=== PATIENT | male | born 1965 ===

== ENCOUNTER 2020-10-02 09:45 | Outpatient (REF) | payer MEDICARE, MEDICAID, SELFPAY ==
--- NOTE | 2020-10-02 09:54 | ECG_ITS ---
Test Reason : Z79.899 Blood Pressure : / mmHG Vent. Rate : 057 BPM Atrial Rate : 057 BPM P-R Int : 172 ms QRS Dur : 096 ms QT Int : 474 ms P-R-T Axes : 069 -89 072 degrees QTc Int : 461 ms Sinus bradycardia Left anterior fascicular block Abnormal ECG No previous ECGs available Referred By: Sarah Mena Electronically Signed By:MAIK RENEE MD
[2020-10-02 11:04] LABS: MANUAL DIFF FLAG NO
[2020-10-02 11:20] LABS: Basophils Percent Auto 0.5 % (0-2); Eosinophils Absolute Auto 0.1 X10*3/uL (0.0-0.4); Eosinophils Percent Auto 1.9 % (0-4); Hematocrit 44.4 % (42-52); Imm Gran Abs Auto 0.03 X10*3/uL (0.00-0.03); Imm Gran Pct Auto 0.4 % (0.0-0.4); Lymphocytes Absolute Auto 2.1 X10*3/uL (1.2-4.9); Lymphocytes Percent Auto 28.3 % (20-40); Mean Corpuscular HGB Conc 33.8 g/dl (31.0-36.0); Mean Corpuscular Hemoglobin 31.7 pg (27.0-33.0); Mean Corpuscular Volume 93.9 fL (80-98); Mean Platelet Volume 9.6 fL (9.4-12.4); Monocytes Absolute Auto 0.4 X10*3/uL (0.1-1.2); Monocytes Percent Auto 5.4 % (2-11); Neutrophils Absolute Auto 4.8 X10*3/uL (2.0-8.3); Neutrophils Percent Auto 63.5 % (45-73); Platelet Count 201 X10*3/uL (160-400); Red Blood Count 4.73 X10*6/uL (4.60-5.80); White Blood Count 7.6 X10*3/uL (4.8-10.8)
[2020-10-02 12:01] LABS: Thyroid Stimulating Hormone 3.93 uIU/mL (0.32-4.0)
[2020-10-02 12:16] LABS: Alanine Aminotransferase < 6 U/L (0-40); Albumin Level 4.4 g/dL (3.5-5.0); Alkaline Phosphatase 101 U/L (39-117); Anion Gap 14 (12-20); Aspartate Amino Transferase 13 U/L (5-37); Bilirubin Total 0.4 mg/dL (0.0-1.0); Blood Urea Nitrogen 11 mg/dL (9-16); Calcium 8.6 mg/dL (8.4-10.2); Carbon Dioxide 26 mmol/L (22-29); Chloride 105 mmol/L (96-108); Cholesterol 182 mg/dL; Estimated Glomerular Filt Rate > 60; Glucose Fasting 76 mg/dL (60-99); HDL Cholesterol 24 mg/dL; LDL Cholesterol Calculated 104 mg/dl; Potassium 4.5 mmol/L (3.3-5.1); Sodium 140 mmol/L (135-145); Total Protein 7.2 g/dL (6.5-8.0); Triglycerides 274 mg/dL
[2020-10-02 12:23] LABS: Estimated Average Glucose 103 mg/dL; Hemoglobin A1c % 5.2 %
== END 2020-10-02 09:46 | disposition home or self-care (01) ==
LOC: HO.LAB 09:45
PROVIDERS: Visit Provider Psychiatry & Neurology Psychiatry
DX: Z79.899 Other long term (current) drug therapy (principal)
CPT/HCPCS: 36415; 80053; 80061; 83036; 84443; 85025; 93005

== ENCOUNTER 2021-11-14 14:07 | Emergency (ER) | payer MEDICARE, MEDICAID, SELFPAY ==
[2021-11-14 14:14] VITALS: BP 103/69; PULSE 90; RESP 14; TEMP 36.7; O2SAT 95; BMI 29.0
--- NOTE | 2021-11-14 14:16 | PC.NURSE ---
o2 sat originally 88% on ra. pt sat up and taking deep breaths- up to 95% on ra
--- NOTE | 2021-11-14 14:16 | ED.OVERDOSE ---
HPI - Overdose General Chief Complaint: ETOH/Substance Use Stated Complaint: SUBSTANCE ABUSE,BAGS X 3,-LOC,-NARCAN Time Seen by Provider: 11/14/21 14:11 Source: patient and EMS Mode of arrival: EMS Limitations: no limitations History of Present Illness HPI Narrative: This is 56 years old male with history of opiate use disorder presented to the emergency room after an overdose, family member called 911, did not require Narcan, arrived awake and alert. He states that he was on methadone up to 10 days ago and he was discharged from the methadone clinic because his behavior complaint: accidental overdose Onset (ago): hour(s) (1) Intent: wanted to escape and other How Overdose Was Discovered: family/friend present at time and called 911 Context: Accidental Overdose: wanted to get high Related Data Allergies Allergy/AdvReac Type Severity Reaction Status Date / Time No Known Allergies Allergy Unverified 10/02/20 10:59 [No Known Allergies*] Review of Systems Constitutional: Constitutional: Reports no additional constitutional complaints Eyes: Eyes: Reports no additional eye complaints Cardiovascular: Cardiovascular: Denies chest pain and Denies chest pain at rest Respiratory: Respiratory: Reports no additional respiratory complaints [facility] Past Medical History [facility] Narrative: opioid use disorder Social History Social History Patient Tobacco Use Status: Current everyday Tobacco user Smoked in Last 30 Days: Yes Use of substances other than those prescribed or required for medical reasons: Yes Substance Use Type: Heroin and Marijuana Substance Use Frequency: Daily Last Used Substance: Just Prior to Admission Any prior treatment program specific to substance use: Yes Advance Directives: No Advance Directives Information Provided: No Physical Exam Vital Signs: Vital Signs: Last Vital Signs Temp 98.1 F 11/14/21 15:52 Pulse 93 11/14/21 15:52 Resp 18 11/14/21 15:52 BP 112/76 11/14/21 15:52 Pulse Ox 95 11/14/21 15:52 O2 Del Method 11/14/21 15:52 O2 Flow Rate 3 11/14/21 15:52 BMI result Body Mass Index 29.0 Const: General: cooperative Nutritional Appearance: average body habitus Orientation/consciousness: patient oriented x3 Limitations: no limitations HEENT: Head: Yes normal to inspection General nose exam: Normal external nose present Face and sinus: Yes normal facial exam Mouth: Normal oral and palatal mucosa present Neck: Neck: Yes normal visual inspection Chest: Chest palpation & inspection: normal inspection of the chest Resp: Effort & Inspection: normal respiratory effort Auscultation: clear to auscultation bilaterally Cardio: Jugular venous distension: no JVD Palpation: normal PMI Rate: regular rate Rhythm: regular rhythm GI: Inspection: Yes normal to inspection Palpation (GI): Soft to palpation, not firm, nontender and no guarding Skin: General skin exam: no rashes or lesions noted Lesions: no lesions Rashes: no rashes Neuro: General: patient oriented x3 Course Reevaluation(s) Reevaluation #1: signed out to Dr Eddie bai pending Discharge Plan Discharge Clinical Impression: Opioid overdose Patient Disposition: Still a Patient
[2021-11-14 15:52] VITALS: BP 112/76; PULSE 93; RESP 18; TEMP 36.7; O2SAT 95
[2021-11-14 16:53] LABS: Appearance Urine HAZY; Color Urine DK YELLOW; Glucose Urine UA NEG (NEG); Leukocyte Esterase Urine NEG (NEG); Nitrite Urine NEG (NEG); PH 5.5 (5.0-8.0); Specific Gravity - Urine >= 1.030 (1.005-1.025); Urine Blood NEG (NEG); Urine Ketones 5 MG/DL (NEG); Urine Protein 2+ MG/DL (NEG-TRACE)
[2021-11-14 16:58] LABS: IDNOW Serial# 16C4AD1C
[2021-11-14 16:59] LABS: COVID-19 Test Negative (Negative)
[2021-11-14 17:00] LABS: WBC Urine 0-2 /HPF (0-4)
[2021-11-14 17:01] LABS: Mucus Urine 4+ /LPF; Squamous Epithelial Cell Urine TRACE /LPF
--- NOTE | 2021-11-14 17:39 | MHC.RECOVSUP ---
? Reason for consult Recovery Support o Current location: ED11 o Identified substance use concern: Heroin - Support ? Intervention: o Community resources provided o Harm reduction discussion ? Plan: o Patient awaiting crisis evaluation o Patient to follow up with [facility] after discharge ? Additional information: Patient is seeking help going to a dual Detox.. Patient stated that he wants to go to a detox but he is having issues with his Meds.. I spoke with the care team about Patient.
[2021-11-14 19:21] LABS: MANUAL DIFF FLAG NO
[2021-11-14 19:22] LABS: Basophils Percent Auto 0.2 % (0-2); Eosinophils Percent Auto 0.1 % (0-4); Hematocrit 37.5 % (42.0-52.0); Hemoglobin 12.7 g/dl (14.0-18.0); Imm Gran Abs Auto 0.03 X10*3/uL (0.00-0.03); Imm Gran Pct Auto 0.4 % (0.0-0.4); Lymphocytes Absolute Auto 1.9 X10*3/uL (1.2-4.9); Lymphocytes Percent Auto 23.2 % (20-40); Mean Corpuscular HGB Conc 33.9 g/dl (31.0-36.0); Mean Corpuscular Volume 91.5 fL (80.0-98.0); Mean Platelet Volume 8.2 fL (9.4-12.4); Monocytes Absolute Auto 0.6 X10*3/uL (0.1-1.2); Monocytes Percent Auto 7.2 % (2-11); Neutrophils Absolute Auto 5.7 x10*3/uL (2.0-8.3); Neutrophils Percent Auto 68.9 % (45-73); Platelet Count 178 X10*3/uL (160-400); White Blood Count 8.3 X10*3/uL (4.8-10.8)
[2021-11-14 19:39] LABS: COVID-19 Test Negative (Negative); Ethanol < 10 mg/dL
[2021-11-14 19:42] LABS: Alanine Aminotransferase 21 U/L (0-40); Albumin Level 4.3 g/dL (3.5-5.0); Alkaline Phosphatase 93 U/L (39-117); Anion Gap 10 (12-20); Aspartate Amino Transferase 19 U/L (5-37); Bilirubin Direct 0.2 mg/dL (0.0-0.5); Bilirubin Total 0.4 mg/dL (0.0-1.0); Blood Urea Nitrogen 10 mg/dL (9-16); Calcium 8.8 mg/dL (8.4-10.2); Carbon Dioxide 27 mmol/L (22-29); Chloride 107 mmol/L (96-108); Creatinine Clr Calc Pharmacy 103.4; Estimated Glomerular Filt Rate > 60; Glucose Random 98 mg/dL (60-115); Lipase 6 U/L (8-78); Potassium 4.1 mmol/L (3.3-5.1); Sodium 140 mmol/L (135-145)
[2021-11-14 20:21] VITALS: BP 102/76; PULSE 79; RESP 18; TEMP 36.5; O2SAT 94
[2021-11-14 20:52] LABS: Amphetamine Screen Urine Not Detected (Not Detect); Appearance Urine CLEAR; Barbiturates, Urine Not Detected (Not Detect); Benzodiazepines Screen Urine POSITIVE (Not Detect); Cannabinoid Screen Urine POSITIVE (Not Detect); Cocaine Screen Urine Not Detected (Not Detect); Color Urine DK YELLOW; Fentanyl, urine POSITIVE (Not Detect); Glucose Urine UA NEG (NEG); Leukocyte Esterase Urine NEG (NEG); Nitrite Urine NEG (NEG); Opiate Screen Urine POSITIVE (Not Detect); Phencyclidine Screen Urine Not Detected (Not Detect); Specific Gravity - Urine >= 1.030 (1.005-1.025); UACC Culture Trigger NO; Urine Blood NEG (NEG); Urine Ketones 5 MG/DL (NEG); Urine Protein 2+ MG/DL (NEG-TRACE)
[2021-11-14 21:19] LABS: RBC Urine 0-2 /HPF (0); WBC Urine 0 /HPF (0-4)
[2021-11-14 21:20] LABS: Calcium Oxalate Crystals Urine 1+ /LPF; Mucus Urine 4+ /LPF; Squamous Epithelial Cell Urine 1+ /LPF
--- NOTE | 2021-11-14 23:34 | PC.NURSE ---
bhn referral completed, no assessment document by previous shift RN
[2021-11-14 23:38] VITALS: BP 108/72; PULSE 76; RESP 18; O2SAT 93
[2021-11-15] VITALS (8 sets, daily range): BP systolic 116–135; BP diastolic 69–86; PULSE 74–88; RESP 16–18; TEMP 36.4; O2SAT 92–95
--- NOTE | 2021-11-15 | ECG_ITS ---
Test Reason : GENERAL MEDICAL Blood Pressure : / mmHG Vent. Rate : 069 BPM Atrial Rate : 069 BPM P-R Int : 172 ms QRS Dur : 090 ms QT Int : 426 ms P-R-T Axes : 056 -79 061 degrees QTc Int : 456 ms Normal sinus rhythm Left axis deviation Borderline ECG When compared with ECG of 02-OCT-2020 10:03, No significant change was found Referred By: Elena Hu Electronically Signed By:DANDY WEBER
[2021-11-15] MEDS: LORazepam 1 MG TABLET 2 MG PO ×3 (00:47→15:51)
[2021-11-15] MEDS: fluPHENAZine HCl 5 MG TABLET PO (01:51)
--- NOTE | 2021-11-15 07:00 | PHA.MEDREC ---
Pharmacy Consult ? Medication Reconciliation Pharmacy has completed the medication reconciliation.
--- NOTE | 2021-11-15 07:31 | PC.NURSE ---
This RN took over care for patient Patient heard yelling at patient observer- patient seeking meds. This RN entered room to talk to patient, patient stating that he needs his meds, patient angry and stating 1mg of Klonopin will not work after being on methadone for 20 years, patient stating he wants his clothes and is going to leave. Dr. Sy aware and changed med to one time dose of Ativan 2mg. Patient took medication w/o further issue. Patient is now calm and cooperative. Patient denies SI, but does report HI. patient observer in place.
[2021-11-15] MEDS: chlorproMAZINE HCl 100 MG TABLET 200 MG PO ×2 (09:50→21:07)
[2021-11-15] MEDS: clonazePAM 1 MG TABLET PO ×2 (09:51→21:08)
--- NOTE | 2021-11-15 13:26 | MHC.CARE ---
Late Entry: CARE Team briefly met with Pt as he stated to RN he wanted to be discharged. Pt stated he is not actively homicidal ideation or suicidal though made provocative statements regarding things he may due . CARE Team attempted to provided support and discuss and alternative levels of care which Pt difficulty navigating at this time. Pt was assessed by the CARE Team on 11/14 and found to meet IPLOC. Plan for psychiatry to weigh in on disposition regarding if Pt can be involuntarily hospitalized.
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
--- NOTE | 2021-11-15 15:16 | P.CNPS_ITS ---
History of Present Illness Date of Service: 11/15/21 Chief Complaint: SUBSTANCE ABUSE,BAGS X 3,-LOC,-NARCAN Reason for Consult: Opiate OD; SI, HI Requesting physician: Ruslan Sy Discussed with referring provider: Yes (CARE Team discussion) Sources of Information: patient interviewed, chart reviewed and crisis/core team assessment reviewed HPI Narrative: 56 yo male, s/p opiate OD with verbalized SI, HI. Pt asked to leave his methadone clinic ~8 days ago with a previous dosing of 83 mg daily for behavioral reasons. He was quite angry and the result was relapse and recent OD. Today he reports team is not helping him and was wanting to leave, however, with provocative statements that nothing has changed and he will need to return to the streets. Discussed with pt admission to address SI, HI, and decide upon what treatment is appropriate for addiction. He is interested in a return to Methadone and would like to attend [facility] clinic as his reported therapist, Sarah Danielson is with [facility]. Addiction consult ordered. Suggest admission to stabilize, re-establish addictions treatment, evaluate safety of pt and community and re-establish with out pt supports. Medical Evaluation Reviewed: Yes Review of Systems Reports behavioral changes Psychiatric: Reports anxiety, Reports behavioral changes, Reports depression, Reports difficulty concentrating, Reports hopelessness, Reports irritability, Reports anhedonia, Reports mood swings, Reports homicidal ideation and Reports suicidal ideation [facility] Medical History (Updated 11/15/21 @ 15:32 by Amber Frost, [place]) Opioid use disorder Schizoaffective disorder Diagnostics Vital Signs (24Hr): Vital Signs - 24 hr 11/14/21 15:52 11/14/21 20:21 11/14/21 23:38 Temperature 98.1 F 97.7 F Pulse Rate 93 79 76 Respiratory Rate 18 18 18 Blood Pressure 112/76 102/76 108/72 Pulse Oximetry 95 94 93 Oxygen Delivery Method Nasal Cannula Nasal Cannula Nasal Cannula Oxygen Flow Rate 3 2 2 11/15/21 05:55 11/15/21 07:34 11/15/21 08:30 Temperature 97.6 F Pulse Rate 84 80 Respiratory Rate 16 18 18 Blood Pressure 135/81 116/73 Pulse Oximetry 92 95 Oxygen Delivery Method Room Air Room Air Oxygen Flow Rate 11/15/21 11:47 11/15/21 13:58 Temperature Pulse Rate 88 77 Respiratory Rate 16 16 Blood Pressure 122/69 123/85 Pulse Oximetry 94 95 Oxygen Delivery Method Room Air Room Air Oxygen Flow Rate BMI result Body Mass Index 29.0 Labs Results: 11/14/21 19:14 11/14/21 19:14 Labs: Laboratory Results - last 48 hr 11/14/21 11/14/21 11/14/21 16:32 16:34 19:14 WBC 8.3 RBC 4.10 L Hgb 12.7 L Hct 37.5 L MCV 91.5 MCH 31.0 MCHC 33.9 RDW 13.0 Plt Count 178 MPV 8.2 L Immature Gran % (Auto) 0.4 Neut % (Auto) 68.9 Lymph % (Auto) 23.2 Lake % (Auto) 7.2 Eos % (Auto) 0.1 Baso % (Auto) 0.2 Lymph # (Auto) 1.9 Lake # (Auto) 0.6 Eos # (Auto) 0.0 Baso # (Auto) 0.0 Abs Immat Gran (auto) 0.03 Absolute Neuts (auto) 5.7 Absolute Nucleated RBC 0.000 Nucleated RBC % (auto) 0.0 Sodium Potassium Chloride Carbon Dioxide Anion Gap BUN Creatinine Estim Creat Clear Calc Estimated GFR Random Glucose Calcium Total Bilirubin Direct Bilirubin AST ALT Alkaline Phosphatase Total Protein Albumin Lipase Urine Color DK YELLOW Urine Appearance HAZY Urine pH 5.5 Ur Specific Matthews >= 1.030 H Urine Protein 2+ H Urine Glucose (UA) NEG Urine Ketones 5 Urine Blood NEG Urine Nitrite NEG Ur Leukocyte Esterase NEG Urine RBC 1-4 Urine WBC 0-2 Ur Squamous Epith Cells TRACE Calcium Oxalate Crystal Urine Bacteria NONE Hyaline Casts 10-14 Granular Casts Urine Mucus 4+ Urine Opiates Screen Urine Fentanyl Screen Ur Barbiturates Screen Ur Phencyclidine Scrn Ur Amphetamines Screen U Benzodiazepines Scrn Urine Cocaine Screen U Marijuana (THC) Screen Ethyl Alcohol COVID-19 (AVEL) Negative COVID-19 Clin Com See Note 11/14/21 11/14/21 11/14/21 19:14 19:14 19:14 WBC RBC Hgb Hct MCV MCH MCHC RDW Plt Count MPV Immature Gran % (Auto) Neut % (Auto) Lymph % (Auto) Lake % (Auto) Eos % (Auto) Baso % (Auto) Lymph # (Auto) Lake # (Auto) Eos # (Auto) Baso # (Auto) Abs Immat Gran (auto) Absolute Neuts (auto) Absolute Nucleated RBC Nucleated RBC % (auto) Sodium 140 Potassium 4.1 Chloride 107 Carbon Dioxide 27 Anion Gap 10 L BUN 10 Creatinine 1.10 Estim Creat Clear Calc 103.4 Estimated GFR > 60 Random Glucose 98 Calcium 8.8 Total Bilirubin 0.4 Direct Bilirubin 0.2 AST 19 D ALT 21 Alkaline Phosphatase 93 Total Protein 7.0 Albumin 4.3 Lipase 6 L Urine Color Urine Appearance Urine pH Ur Specific Matthews Urine Protein Urine Glucose (UA) Urine Ketones Urine Blood Urine Nitrite Ur Leukocyte Esterase Urine RBC Urine WBC Ur Squamous Epith Cells Calcium Oxalate Crystal Urine Bacteria Hyaline Casts Granular Casts Urine Mucus Urine Opiates Screen Urine Fentanyl Screen Ur Barbiturates Screen Ur Phencyclidine Scrn Ur Amphetamines Screen U Benzodiazepines Scrn Urine Cocaine Screen U Marijuana (THC) Screen Ethyl Alcohol < 10 COVID-19 (AVEL) Negative COVID-19 Clin Com See Note 11/14/21 11/14/21 20:25 20:25 WBC RBC Hgb Hct MCV MCH MCHC RDW Plt Count MPV Immature Gran % (Auto) Neut % (Auto) Lymph % (Auto) Lake % (Auto) Eos % (Auto) Baso % (Auto) Lymph # (Auto) Lake # (Auto) Eos # (Auto) Baso # (Auto) Abs Immat Gran (auto) Absolute Neuts (auto) Absolute Nucleated RBC Nucleated RBC % (auto) Sodium Potassium Chloride Carbon Dioxide Anion Gap BUN Creatinine Estim Creat Clear Calc Estimated GFR Random Glucose Calcium Total Bilirubin Direct Bilirubin AST ALT Alkaline Phosphatase Total Protein Albumin Lipase Urine Color DK YELLOW Urine Appearance CLEAR Urine pH 6.0 Ur Specific Matthews >= 1.030 H Urine Protein 2+ H Urine Glucose (UA) NEG Urine Ketones 5 Urine Blood NEG Urine Nitrite NEG Ur Leukocyte Esterase NEG Urine RBC 0-2 Urine WBC 0 Ur Squamous Epith Cells 1+ Calcium Oxalate Crystal 1+ Urine Bacteria NONE Hyaline Casts 1-4 Granular Casts 1-4 Urine Mucus 4+ Urine Opiates Screen POSITIVE H Urine Fentanyl Screen POSITIVE H Ur Barbiturates Screen Not Detected Ur Phencyclidine Scrn Not Detected Ur Amphetamines Screen Not Detected U Benzodiazepines Scrn POSITIVE H Urine Cocaine Screen Not Detected U Marijuana (THC) Screen POSITIVE H Ethyl Alcohol COVID-19 (AVEL) COVID-19 Clin Com Mental Status Exam Mental Status Exam Patient Appearance: Appropriate Patient Orientation: Person, Place, Time and Situation Level of Consciousness: Alert Patient Behavior: Talkative and Good Eye Contact Mood Description: Angry Affect Description: Labile Patient Cognition Impaired: No Ability to Follow Directions: Good Speech Pattern: Spontaneous Speech Memory Description: Episodic Impaired Hallucinations: None Delusions: Not Present Thought Process: Distracted and Rumination Thought Content: positive for Perseveration, positive for Suicidal Ideation and positive for Homicidal Ideation Depressive Symptoms: Increased Irritability and Thoughts of /Suicide Abnormal Motor Activity Signs and Symptoms: Agitation Judgement: Poor Medications Medications Current Medications Chlorpromazine HCl (Chlorpromazine Hcl 100 Mg Tablet) 200 mg PO TID PRN PRN Reason: anxiety/restlessness Last Admin: 11/15/21 09:50 Dose: 200 mg Clonazepam (Clonazepam 1 Mg Tablet) 1 mg PO TID PRN PRN Reason: unknown Last Admin: 11/15/21 09:51 Dose: 1 mg Fluphenazine HCl (Fluphenazine Hcl 5 Mg Tablet) 5 mg PO BID [facility] Last Admin: 11/15/21 11:14 Dose: Not Given Lorazepam (Lorazepam 1 Mg Tablet) 2 mg PO DAILY PRN PRN Reason: anxiety attack Last Admin: 11/15/21 00:47 Dose: 2 mg Methadone HCl (Methadone Hcl 10 Mg Tablet) 20 mg PO ONCE ONE Stop: 11/15/21 18:01 Methadone HCl (Methadone Hcl 10 Mg Tablet) 10 mg PO ONCE PRN PRN Reason: Opioid withdrawal Stop: 11/16/21 00:55 Omeprazole (Omeprazole 20 Mg Capsule.Dr) 20 mg PO DAILY [facility] Last Admin: 11/15/21 11:15 Dose: Not Given Paroxetine HCl (Paroxetine Hcl 20 Mg Tablet) 20 mg PO DAILY [facility] Last Admin: 11/15/21 11:15 Dose: Not Given Pharmacy Consult (Consult Rx Perform Med Rec) 1 each MISCELLANE ONCE PRN PRN Reason: Consult order Allergies Allergies Allergy/AdvReac Type Severity Reaction Status Date / Time No Known Allergies Allergy Unverified 10/02/20 10:59 [No Known Allergies*] Assessment & Plan Assessment & Plan (1) Opioid use disorder: Status: Acute Code(s): F11.90 - Opioid use, unspecified, uncomplicated (2) Schizoaffective disorder: Status: Acute Code(s): F25.9 - Schizoaffective disorder, unspecified (3) Opioid overdose: Status: Acute Code(s): T40.2X1A - Poisoning by other opioids, accidental (unintentional), initial encounter Plan 56 yo male, hx of schizoaffective disorder, opiate use disorder, s/p overdose after being asked to leave his methadone clinic. Pt verbalized SI, HI and has been provocative with team-asking to leave. Discussed with pt admission to evaluate SI, HI, MSE, medications prior to admission and to have addictions consult to re-estabish methadone which he was interested in. Plan: Addictions consult while in ER to discuss options for returning to Methadone maintenance. Consider in pt admission to stabilize and re-evaluate MSE/medication regime for schizoaffective disorder. I spent minutes with the patient and/or on the patient floor today, greater than?50% of which was spent counseling/coordinating care. Patient educated on: medication risk/benefits and therapeutic strategies Informed Consent: understands and further education needed
--- NOTE | 2021-11-15 15:40 | PC.NURSE ---
patient restless, agitated. Dr Sy to bedside, patient aware of plan of care for prn ativan and that methadone at 1800
[2021-11-15] MEDS: methADONE HCl 10 MG TABLET 20 MG PO (17:07)
[2021-11-15] MEDS: methADONE HCl 10 MG TABLET PO (21:07)
[2021-11-16] MEDS: LORazepam 1 MG TABLET 2 MG PO (00:48)
--- NOTE | 2021-11-16 01:00 | PC.NURSE ---
pt c/o anxiety and requested PRN ativan, resting in bed at this time. 1:1 remains constant
[2021-11-16 03:34] VITALS: BP 144/71; PULSE 87; RESP 16; TEMP 36.1; O2SAT 94
[2021-11-16 07:35] VITALS: BP 125/96; PULSE 103; RESP 16
--- NOTE | 2021-11-16 10:11 | P.PNADD_ITS ---
Subjective Subjective Date of Service: 11/16/21 Reason For Visit: SUBSTANCE ABUSE,BAGS X 3,-LOC,-NARCAN Medical Problems Affecting Mental Status: No Interim History: Patient reports positive affect from methadone 20 mg at 17:07 yesterday, along with 10 mg at 21:07. EKG shows QTC of 456. Patient asking for increased dose today. Patient last received 83 mg methadone at [facility] in [place] proximally 1 month ago. He had been administratively discharged, and was referred to [facility] in [place]. [facility] reports that he did not start there. Medication Compliance: Intermittent Side effects from medications: No Review of Systems Acute medical concerns: No Review of Systems Constitutional: Reports body ache(s), Reports chills, Reports excessive sweating, Reports malaise and Reports night sweats Eyes: Reports no additional eye complaints Reports Normal hearing present Cardiovascular: Reports as per HPI Respiratory: Reports as per HPI Reports Normal hearing present Psychiatric: Reports as per HPI and Reports anxiety (Agitation, relates to opioid withdrawals.) Endocrine: Reports excessive sweating Mental Status Exam Mental Status Exam Narrative: Well-developed, well-nourished male, in NAD. Opioid withdrawal symptoms observed include restlessness, anxiety/agitation, slight diaphoresis, yawning, complaints of generalized body aches/malaise. Patient Appearance: Appropriate Patient Orientation: Person, Place, Time and Situation Level of Consciousness: Appropriate Patient Behavior: Good Eye Contact Abnormal Motor Activity Signs and Symptoms: Agitation Judgement: Poor Diagnostics Vital Signs (24Hr): Vital Signs - 24 hr 11/15/21 11:47 11/15/21 13:58 11/15/21 15:36 Temperature Pulse Rate 88 77 74 Respiratory Rate 16 16 16 Blood Pressure 122/69 123/85 122/86 Pulse Oximetry 94 95 95 Oxygen Delivery Method Room Air Room Air Room Air 11/15/21 21:09 11/16/21 03:34 11/16/21 07:35 Temperature 96.9 F Pulse Rate 77 87 103 H Respiratory Rate 16 16 16 Blood Pressure 144/71 H 125/96 H Pulse Oximetry 94 94 Oxygen Delivery Method Room Air Room Air Room Air BMI result Body Mass Index 29.0 Labs Results: 11/14/21 19:14 11/14/21 19:14 Labs: Laboratory Results - last 48 hr 11/14/21 11/14/21 11/14/21 16:32 16:34 19:14 WBC 8.3 RBC 4.10 L Hgb 12.7 L Hct 37.5 L MCV 91.5 MCH 31.0 MCHC 33.9 RDW 13.0 Plt Count 178 MPV 8.2 L Immature Gran % (Auto) 0.4 Neut % (Auto) 68.9 Lymph % (Auto) 23.2 [place] % (Auto) 7.2 Eos % (Auto) 0.1 Baso % (Auto) 0.2 Lymph # (Auto) 1.9 [place] # (Auto) 0.6 Eos # (Auto) 0.0 Baso # (Auto) 0.0 Abs Immat Gran (auto) 0.03 Absolute Neuts (auto) 5.7 Absolute Nucleated RBC 0.000 Nucleated RBC % (auto) 0.0 Sodium Potassium Chloride Carbon Dioxide Anion Gap BUN Creatinine Estim Creat Clear Calc Estimated GFR Random Glucose Calcium Total Bilirubin Direct Bilirubin AST ALT Alkaline Phosphatase Total Protein Albumin Lipase Urine Color DK YELLOW Urine Appearance HAZY Urine pH 5.5 Ur Specific [place] >= 1.030 H Urine Protein 2+ H Urine Glucose (UA) NEG Urine Ketones 5 Urine Blood NEG Urine Nitrite NEG Ur Leukocyte Esterase NEG Urine RBC 1-4 Urine WBC 0-2 Ur Squamous Epith Cells TRACE Calcium Oxalate Crystal Urine Bacteria NONE Hyaline Casts 10-14 Granular Casts Urine Mucus 4+ Urine Opiates Screen Urine Fentanyl Screen Ur Barbiturates Screen Ur Phencyclidine Scrn Ur Amphetamines Screen U Benzodiazepines Scrn Urine Cocaine Screen U Marijuana (THC) Screen Ethyl Alcohol COVID-19 (AVEL) Negative COVID-19 Clin Com See Note 11/14/21 11/14/21 11/14/21 19:14 19:14 19:14 WBC RBC Hgb Hct MCV MCH MCHC RDW Plt Count MPV Immature Gran % (Auto) Neut % (Auto) Lymph % (Auto) [place] % (Auto) Eos % (Auto) Baso % (Auto) Lymph # (Auto) [place] # (Auto) Eos # (Auto) Baso # (Auto) Abs Immat Gran (auto) Absolute Neuts (auto) Absolute Nucleated RBC Nucleated RBC % (auto) Sodium 140 Potassium 4.1 Chloride 107 Carbon Dioxide 27 Anion Gap 10 L BUN 10 Creatinine 1.10 Estim Creat Clear Calc 103.4 Estimated GFR > 60 Random Glucose 98 Calcium 8.8 Total Bilirubin 0.4 Direct Bilirubin 0.2 AST 19 D ALT 21 Alkaline Phosphatase 93 Total Protein 7.0 Albumin 4.3 Lipase 6 L Urine Color Urine Appearance Urine pH Ur Specific [place] Urine Protein Urine Glucose (UA) Urine Ketones Urine Blood Urine Nitrite Ur Leukocyte Esterase Urine RBC Urine WBC Ur Squamous Epith Cells Calcium Oxalate Crystal Urine Bacteria Hyaline Casts Granular Casts Urine Mucus Urine Opiates Screen Urine Fentanyl Screen Ur Barbiturates Screen Ur Phencyclidine Scrn Ur Amphetamines Screen U Benzodiazepines Scrn Urine Cocaine Screen U Marijuana (THC) Screen Ethyl Alcohol < 10 COVID-19 (AVEL) Negative COVID-19 Clin Com See Note 11/14/21 11/14/21 20:25 20:25 WBC RBC Hgb Hct MCV MCH MCHC RDW Plt Count MPV Immature Gran % (Auto) Neut % (Auto) Lymph % (Auto) [place] % (Auto) Eos % (Auto) Baso % (Auto) Lymph # (Auto) [place] # (Auto) Eos # (Auto) Baso # (Auto) Abs Immat Gran (auto) Absolute Neuts (auto) Absolute Nucleated RBC Nucleated RBC % (auto) Sodium Potassium Chloride Carbon Dioxide Anion Gap BUN Creatinine Estim Creat Clear Calc Estimated GFR Random Glucose Calcium Total Bilirubin Direct Bilirubin AST ALT Alkaline Phosphatase Total Protein Albumin Lipase Urine Color DK YELLOW Urine Appearance CLEAR Urine pH 6.0 Ur Specific [place] >= 1.030 H Urine Protein 2+ H Urine Glucose (UA) NEG Urine Ketones 5 Urine Blood NEG Urine Nitrite NEG Ur Leukocyte Esterase NEG Urine RBC 0-2 Urine WBC 0 Ur Squamous Epith Cells 1+ Calcium Oxalate Crystal 1+ Urine Bacteria NONE Hyaline Casts 1-4 Granular Casts 1-4 Urine Mucus 4+ Urine Opiates Screen POSITIVE H Urine Fentanyl Screen POSITIVE H Ur Barbiturates Screen Not Detected Ur Phencyclidine Scrn Not Detected Ur Amphetamines Screen Not Detected U Benzodiazepines Scrn POSITIVE H Urine Cocaine Screen Not Detected U Marijuana (THC) Screen POSITIVE H Ethyl Alcohol COVID-19 (AVEL) COVID-19 Clin Com Medications Medications Current Medications Chlorpromazine HCl (Chlorpromazine Hcl 100 Mg Tablet) 200 mg PO TID PRN PRN Reason: anxiety/restlessness Last Admin: 11/15/21 21:07 Dose: 200 mg Clonazepam (Clonazepam 1 Mg Tablet) 1 mg PO TID PRN PRN Reason: unknown Last Admin: 11/15/21 21:08 Dose: 1 mg Fluphenazine HCl (Fluphenazine Hcl 5 Mg Tablet) 5 mg PO BID [facility] Last Admin: 11/15/21 21:31 Dose: Not Given Lorazepam (Lorazepam 1 Mg Tablet) 2 mg PO DAILY PRN PRN Reason: anxiety attack Last Admin: 11/16/21 00:48 Dose: 2 mg Methadone HCl (Methadone Hcl 20 Mg/2 Ml Oral.Conc) 35 mg PO DAILY [facility] Omeprazole (Omeprazole 20 Mg Capsule.Dr) 20 mg PO DAILY [facility] Last Admin: 11/15/21 11:15 Dose: Not Given Paroxetine HCl (Paroxetine Hcl 20 Mg Tablet) 20 mg PO DAILY [facility] Last Admin: 11/15/21 11:15 Dose: Not Given Pharmacy Consult (Consult Rx Perform Med Rec) 1 each MISCELLANE ONCE PRN PRN Reason: Consult order Allergies Allergies Allergy/AdvReac Type Severity Reaction Status Date / Time No Known Allergies Allergy Unverified 10/02/20 10:59 [No Known Allergies*] Assessment & Plan Assessment & Plan (1) Opioid use disorder: Status: Acute Code(s): F11.90 - Opioid use, unspecified, uncomplicated Assessment and Plan: Methadone 35 mg daily ordered, start this morning. Plan 56 yo male, hx of schizoaffective disorder, opiate use disorder, s/p overdose after being asked to leave his methadone clinic. Pt verbalized SI, HI and has been provocative with team-asking to leave. Discussed with pt admission to evaluate SI, HI, MSE, medications prior to admission and to have addictions consult to re-estabish methadone which he was interested in. Plan: Addictions consult while in ER to discuss options for returning to Methadone maintenance. Consider in pt admission to stabilize and re-evaluate MSE/medication regime for schizoaffective disorder. I spent minutes with the patient and/or on the patient floor today, greater than?50% of which was spent counseling/coordinating care. Education Patient educated on: diagnosis, medication risk/benefits and substance abuse Informed Consent: understands
[2021-11-16] MEDS: methADONE HCl 20 MG/2 ML ORAL.CONC 35 MG PO (10:44)
[2021-11-16] MEDS: Omeprazole 20 MG CAPSULE.DR PO (10:45)
[2021-11-16] MEDS: clonazePAM 1 MG TABLET PO (10:48)
[2021-11-16 10:49] VITALS: BP 133/96; PULSE 95; RESP 18; O2SAT 96
[2021-11-16 14:22] VITALS: BP 97/76; PULSE 76; RESP 16; O2SAT 93
--- NOTE | 2021-11-16 15:47 | MHC.CARE ---
CARE team confirmed with the recovery team that the pt has been referred to the methadone clinic at [facility] and should present to the clinic before 7am tomorrow. Information was relayed to the ED nurse. Pt will be discharged from the ED and transported home by his girlfriend.
--- NOTE | 2021-11-16 15:59 | MHC.RECOVRN ---
Referral has been sent to [facility], pt to present at 0700 day after discharge. Pt needs last dose letter prior to dc.
== END 2021-11-16 15:49 | disposition home or self-care (01) ==
PROVIDERS: Emergency Medicine; Emergency Provider Emergency Medicine
DX: T40.1X1A Poisoning by heroin, accidental (unintentional), initial encounter (principal); Y92.9 Unspecified place or not applicable; F11.19 Opioid abuse with unspecified opioid-induced disorder; F25.9 Schizoaffective disorder, unspecified; F17.210 Nicotine dependence, cigarettes, uncomplicated; Z20.822 Contact with and (suspected) exposure to COVID-19; Z71.6 Tobacco abuse counseling; Z79.899 Other long term (current) drug therapy
CPT/HCPCS: 36415; 80048; 80076; 80307; 81001; 82077; 83690; 85025; 87635; 93005; 96365; 99285

== ENCOUNTER 2022-10-27 17:02 | Emergency (ER) | payer MEDICARE, MEDICAID, SELFPAY ==
[2022-10-27 17:06] VITALS: BP 134/98; PULSE 68; O2SAT 98
--- NOTE | 2022-10-27 17:08 | ED.GENADULT ---
HPI - General Adult General Chief complaint: Nausea/Vomiting/Diarrhea Stated complaint: NAUSEA, VOMITING Time Seen by Provider: 10/27/22 20:45 Source: patient Mode of arrival: EMS History of Present Illness HPI narrative: 57-year-old male who denies any alcohol use and states that he is been injection drug free for a number of years. States that he has had 3 days of nausea and vomiting but denies any diarrhea and endorses chills but no fevers and otherwise denies any urinary symptoms. Related Data Home Medications Medication Instructions Recorded Confirmed chlorpromazine 200 mg tablet 1 tab PO TID PRN unknown 11/14/21 11/14/21 clonazepam 1 mg tablet 1 tab PO TID PRN unknown 11/14/21 11/14/21 fluphenazine HCl 5 mg tablet 1 tab PO BID 11/14/21 11/14/21 lorazepam 2 mg tablet 1 tab PO DAILY PRN anxiety attack 11/14/21 11/14/21 pantoprazole 40 mg tablet,delayed 1 tab PO DAILY 11/14/21 11/14/21 release paroxetine HCl 20 mg tablet 1 tab PO DAILY 11/14/21 11/14/21 Allergies Allergy/AdvReac Type Severity Reaction Status Date / Time No Known Allergies Allergy Verified 10/27/22 17:55 [No Known Allergies*] Review of Systems Review of Systems: Pertinent positives and negatives as stated in HPI [facility] Past Medical History Source: nursing notes reviewed Medical History Opioid use disorder Schizoaffective disorder Social History Social History Patient Tobacco Use Status: Current everyday Tobacco user Smoked in Last 30 Days: Yes Use of substances other than those prescribed or required for medical reasons: Yes Substance Use Type: Heroin and Marijuana Advance Directives: No Advance Directives Information Provided: No Physical Exam ED Vital Signs: Vital Signs - 24 hr 10/27/22 17:47 10/27/22 22:43 10/28/22 01:20 Temperature 97.4 F Pulse Rate 97 61 63 Respiratory Rate 28 H 16 18 Blood Pressure 119/83 99/51 L 125/80 Pulse Oximetry 97 99 98 Oxygen Delivery Method Room Air Room Air Room Air BMI result Body Mass Index 24.1 VITAL SIGNS: Reviewed. GENERAL: Well developed, well nourished, in no acute distress. HEAD: Normocephalic/atraumatic EYES: PERRLA, EOMI EARS: Ext canals without abnormality NOSE: Nares patent bilateral OROPHARYNX: no oral lesions noted, posterior pharynx clear, dry mucosa NECK: Supple, no adenopathy LUNGS: Normal breath sounds. No adventitious sounds or accessory muscle use. SpO2<97> CARDIOVASCULAR: Regular rate and rhythm without noted murmurs ABDOMEN: Soft, right upper quadrant discomfort, Salcedo's positive, non-distended with bowel sounds. MUSCULOSKELETAL: No tenderness, deformities, or effusions noted on gross inspection. EXTREMITIES: No cyanosis, clubbing or edema. SKIN: Inspection of the skin reveals no rashes NEUROLOGIC: Alert and oriented x 4. Strength and sensation to light touch were grossly intact x 4. Course Course Course Narrative: This is an RME: Additional HPI, ROS, PE not included below will be deferred to primary provider. This is a [id number]-male opioid use disorder on methadone and schizoaffective disorder, presenting to the emergency department via EMS with a complaint of nausea and vomiting x 3 days. Admits to having lower abdominal pain. Reports that he has had a cough and shortness of breath. No chest pain. No urinary symptoms. VSS. Plan: Labs, cxr, covid swab ordered Medications Administered Discontinued Medications Generic Name Dose Route Start Last Admin Trade Name Freq PRN Reason Stop Dose Admin Sodium Chloride 2,000 mls @ 999 mls/hr 10/27/22 22:30 10/28/22 00:25 Ns IV 10/28/22 00:30 Infused .Q2H1M CRYSTAL Infusion Piperacillin Sod/Tazobactam 50 mls @ 100 mls/hr 10/28/22 00:34 10/28/22 01:26 Sod 3.375 gm/ Sodium Chloride IV 10/28/22 01:03 Infused ONCE ONE Infusion Ondansetron HCl 4 mg 10/27/22 22:20 10/27/22 22:24 Ondansetron Hcl 4 Mg/2 Ml Vial IVPUSH 10/27/22 22:21 4 mg ONCE ONE Administration Procedures EJ/Peripheral Line Arm R: Time Out Performed: No Skin Cleansed in Sterile Fashion: Yes Size (gauge): 20 IV Secured and Dressing Applied: Yes Patient Tolerated Procedure: well Additional Comments: IV was placed via ultrasound guidance. Medical Decision Making Medical Decision Making [facility] Narrative: 223: 57-year-old male with history and clinical presentation, DDX: Cholecystitis, pancreatitis, gastritis, gastroenteritis, much lower clinical suspicion for appendicitis/diverticulitis. I reviewed all investigations and it is my interpretation that on the hematologic indices patient has a stress leukocytosis from the nausea and vomiting that he has been experiencing as well as a component of dehydration. In addition, the noted chemistry derangements are consistent with dehydration as well. Patient is otherwise doing well, alert and oriented, communicating well, afebrile, the mild lactic acidosis has improved and there is no evidence to suggest cholecystitis, pancreatitis. On abdominal re-examination no suspicion for diverticulitis or appendicitis. Patient states that he is feeling much better and is noted to be drinking liquids without difficulty. Patient states he is on a methadone program that he missed his methadone dose for today and so he was given a 10 mg dose here in the emergency room. Patient received 2 L of IV fluids, antibiotics and antinausea medication. Patient is otherwise discharged home in stable condition. Differential Diagnosis Please see the discussion above Admission/Observation Consideration of admission/observation: Escalation of care including admission/observation considered Lab Data Please see the discussion above 10/27/22 21:20 10/27/22 21:20 Labs: Lab Results 10/27/22 10/27/22 10/27/22 Range/Units 18:15 21:20 21:20 WBC 18.2 H (4.8-10.8) X10*3/uL RBC 5.36 D (4.60-5.80) X10*6/uL Hgb 17.0 D (14.0-18.0) g/dl Hct 47.0 D (42.0-52.0) % MCV 87.7 (80.0-98.0) fL MCH 31.7 (27.0-33.0) pg MCHC 36.2 H (31.0-36.0) g/dl RDW 12.5 (11.0-16.0) % Plt Count 330 D (160-400) X10*3/uL MPV 8.6 L (9.4-12.4) fL Immature Gran % (Auto) 0.5 H (0.0-0.4) % Neut % (Auto) 83.3 H (45-73) % Lymph % (Auto) 10.5 L (20-40) % [place] % (Auto) 5.3 (2-11) % Eos % (Auto) 0.3 (0-4) % Baso % (Auto) 0.1 (0-2) % Lymph # (Auto) 1.9 (1.2-4.9) X10*3/uL [place] # (Auto) 1.0 (0.1-1.2) X10*3/uL Eos # (Auto) 0.1 (0.0-0.4) X10*3/uL Baso # (Auto) 0.0 (0.0-0.2) X10*3/uL Abs Immat Gran (auto) 0.09 H (0.00-0.03) X10*3/uL Absolute Neuts (auto) 15.2 H (2.0-8.3) x10*3/uL Absolute Nucleated RBC 0.000 (0.0-0.012) X10*3/uL Nucleated RBC % (auto) 0.0 (0.0-0.2) /100WBC Sodium 139 (135-145) mmol/L Potassium 3.8 (3.3-5.1) mmol/L Chloride 107 (96-108) mmol/L Carbon Dioxide 13 L (22-29) mmol/L Anion Gap 23 H (12-20) BUN 19 H (9-16) mg/dL Creatinine 0.99 (0.5-1.4) mg/dL Estim Creat Clear Calc 103.5 Estimated GFR > 60 POC Glucose (60-115) mg/dL Random Glucose 127 H (60-115) mg/dL Lactic Acid (0.5-2.0) mmol/L Lactic Acid F/U @ 2Hr (0.5-2.0) mmol/L Calcium 9.6 D (8.4-10.2) mg/dL Magnesium 2.2 (1.6-2.6) mg/dL Total Bilirubin 1.4 H (0.0-1.0) mg/dL Direct Bilirubin 0.4 (0.0-0.5) mg/dL AST 47 H (5-37) U/L ALT 18 (0-40) U/L Alkaline Phosphatase 106 (39-117) U/L Total Protein 7.6 (6.5-8.0) g/dL Albumin 4.4 (3.5-5.0) g/dL Lipase 11 (8-78) U/L Urine Opiates Screen (Not Detect) Urine Fentanyl Screen (Not Detect) Ur Barbiturates Screen (Not Detect) Ur Phencyclidine Scrn (Not Detect) Ur Amphetamines Screen (Not Detect) U Benzodiazepines Scrn (Not Detect) Urine Cocaine Screen (Not Detect) U Marijuana (THC) Screen (Not Detect) Ethyl Alcohol mg/dL COVID-19 (AVEL) Negative (Negative) COVID-19 Clin Com See Note 10/27/22 10/27/22 10/27/22 Range/Units 21:20 21:44 22:18 WBC (4.8-10.8) X10*3/uL RBC (4.60-5.80) X10*6/uL Hgb (14.0-18.0) g/dl Hct (42.0-52.0) % MCV (80.0-98.0) fL MCH (27.0-33.0) pg MCHC (31.0-36.0) g/dl RDW (11.0-16.0) % Plt Count (160-400) X10*3/uL MPV (9.4-12.4) fL Immature Gran % (Auto) (0.0-0.4) % Neut % (Auto) (45-73) % Lymph % (Auto) (20-40) % [place] % (Auto) (2-11) % Eos % (Auto) (0-4) % Baso % (Auto) (0-2) % Lymph # (Auto) (1.2-4.9) X10*3/uL [place] # (Auto) (0.1-1.2) X10*3/uL Eos # (Auto) (0.0-0.4) X10*3/uL Baso # (Auto) (0.0-0.2) X10*3/uL Abs Immat Gran (auto) (0.00-0.03) X10*3/uL Absolute Neuts (auto) (2.0-8.3) x10*3/uL Absolute Nucleated RBC (0.0-0.012) X10*3/uL Nucleated RBC % (auto) (0.0-0.2) /100WBC Sodium (135-145) mmol/L Potassium (3.3-5.1) mmol/L Chloride (96-108) mmol/L Carbon Dioxide (22-29) mmol/L Anion Gap (12-20) BUN (9-16) mg/dL Creatinine (0.5-1.4) mg/dL Estim Creat Clear Calc Estimated GFR POC Glucose 130 H (60-115) mg/dL Random Glucose (60-115) mg/dL Lactic Acid (0.5-2.0) mmol/L Lactic Acid F/U @ 2Hr (0.5-2.0) mmol/L Calcium (8.4-10.2) mg/dL Magnesium (1.6-2.6) mg/dL Total Bilirubin (0.0-1.0) mg/dL Direct Bilirubin (0.0-0.5) mg/dL AST (5-37) U/L ALT (0-40) U/L Alkaline Phosphatase (39-117) U/L Total Protein (6.5-8.0) g/dL Albumin (3.5-5.0) g/dL Lipase (8-78) U/L Urine Opiates Screen Not Detected (Not Detect) Urine Fentanyl Screen Not Detected (Not Detect) Ur Barbiturates Screen Not Detected (Not Detect) Ur Phencyclidine Scrn Not Detected (Not Detect) Ur Amphetamines Screen Not Detected (Not Detect) U Benzodiazepines Scrn POSITIVE H (Not Detect) Urine Cocaine Screen Not Detected (Not Detect) U Marijuana (THC) Screen POSITIVE H (Not Detect) Ethyl Alcohol < 10 mg/dL COVID-19 (AVEL) (Negative) COVID-19 Clin Com 10/27/22 10/28/22 Range/Units 23:55 02:30 WBC (4.8-10.8) X10*3/uL RBC (4.60-5.80) X10*6/uL Hgb (14.0-18.0) g/dl Hct (42.0-52.0) % MCV (80.0-98.0) fL MCH (27.0-33.0) pg MCHC (31.0-36.0) g/dl RDW (11.0-16.0) % Plt Count (160-400) X10*3/uL MPV (9.4-12.4) fL Immature Gran % (Auto) (0.0-0.4) % Neut % (Auto) (45-73) % Lymph % (Auto) (20-40) % [place] % (Auto) (2-11) % Eos % (Auto) (0-4) % Baso % (Auto) (0-2) % Lymph # (Auto) (1.2-4.9) X10*3/uL [place] # (Auto) (0.1-1.2) X10*3/uL Eos # (Auto) (0.0-0.4) X10*3/uL Baso # (Auto) (0.0-0.2) X10*3/uL Abs Immat Gran (auto) (0.00-0.03) X10*3/uL Absolute Neuts (auto) (2.0-8.3) x10*3/uL Absolute Nucleated RBC (0.0-0.012) X10*3/uL Nucleated RBC % (auto) (0.0-0.2) /100WBC Sodium (135-145) mmol/L Potassium (3.3-5.1) mmol/L Chloride (96-108) mmol/L Carbon Dioxide (22-29) mmol/L Anion Gap (12-20) BUN (9-16) mg/dL Creatinine (0.5-1.4) mg/dL Estim Creat Clear Calc Estimated GFR POC Glucose (60-115) mg/dL Random Glucose (60-115) mg/dL Lactic Acid 2.2 H* (0.5-2.0) mmol/L Lactic Acid F/U @ 2Hr 0.8 (0.5-2.0) mmol/L Calcium (8.4-10.2) mg/dL Magnesium (1.6-2.6) mg/dL Total Bilirubin (0.0-1.0) mg/dL Direct Bilirubin (0.0-0.5) mg/dL AST (5-37) U/L ALT (0-40) U/L Alkaline Phosphatase (39-117) U/L Total Protein (6.5-8.0) g/dL Albumin (3.5-5.0) g/dL Lipase (8-78) U/L Urine Opiates Screen (Not Detect) Urine Fentanyl Screen (Not Detect) Ur Barbiturates Screen (Not Detect) Ur Phencyclidine Scrn (Not Detect) Ur Amphetamines Screen (Not Detect) U Benzodiazepines Scrn (Not Detect) Urine Cocaine Screen (Not Detect) U Marijuana (THC) Screen (Not Detect) Ethyl Alcohol mg/dL COVID-19 (AVEL) (Negative) COVID-19 Clin Com Independent Interpretation I performed an independent interpretation of an: EKG Interpretation: Sinus rhythm with PACs, HR-94, AL/QRS within normal limits, QTC prolonged Radiology Impression Radiologist Impression: No cholecystitis, otherwise my interpretation is in agreement with radiology's impression External Record Review External record reviewed: Outpatient record and Prior outpatient labs Discharge Plan Discharge Clinical Impression: Nausea & vomiting, Cannabis use disorder, Dehydration, Gastroenteritis Patient Disposition: Home, Self-Care Instructions: Dehydration (ED), Gastroenteritis (ED), Acute Nausea and Vomiting (ED) Additional Instructions: 1. Resume all home medications as prescribed. 2. Continue to increase water intake over the next 2-3 days. 3. Follow-up with your primary care provider. Return to the ER for any worsening symptoms. Prescriptions: No Action clonazepam 1 mg tablet 1 tab PO TID PRN (Reason: unknown) lorazepam 2 mg tablet 1 tab PO DAILY PRN (Reason: anxiety attack) paroxetine HCl 20 mg tablet 1 tab PO DAILY pantoprazole 40 mg tablet,delayed release (DR/EC) 1 tab PO DAILY chlorpromazine 200 mg tablet 1 tab PO TID PRN (Reason: unknown) fluphenazine HCl 5 mg tablet 1 tab PO BID
[2022-10-27 17:47] VITALS: BP 119/83; PULSE 97; RESP 28; TEMP 36.3; O2SAT 97; BMI 24.1
--- NOTE | 2022-10-27 21:08 | PC.NURSE ---
Pt ca&ox3, states he has been vomiting for 3x days unable to keep anything down also reports he is on methadone. Pt asking if he can go home. wctm.
--- NOTE | 2022-10-27 21:35 | PC.NURSE ---
blood draw attempted x 5. pt is a difficult stick. unable to obtain labs at this time. cbc hemolyzed in lab. will alert provider
--- NOTE | 2022-10-27 21:53 | PC.NURSE ---
Pt ambulated to restroom with a steady gait. Urine collected. wctm.
--- NOTE | 2022-10-27 22:20 | PC.NURSE ---
POC 130. aware. wctm.
--- NOTE | 2022-10-27 22:31 | PC.NURSE ---
ultra sound guided iv line #20g R upper arm placed by MD Camejo. blood work sent to lab
--- NOTE | 2022-10-27 22:32 | PC.NURSE ---
Meds administered per mar.
[2022-10-27 22:43] VITALS: BP 99/51; PULSE 61; RESP 16; O2SAT 99
--- NOTE | 2022-10-27 23:10 | PC.NURSE ---
ultra sound guided iv line infiltrated - pt did not receive any of the iv fluids. MD Camejo aware and placing another iv line now. will obtain blood cultures and a lactic acid as ordered.
--- NOTE | 2022-10-27 23:59 | PC.NURSE ---
late attempt to obtain blood cultures as had trouble getting iv line. #20g iv placed in R anterior calf - blood cultures and lactic acid sent. iv fluids running no issues line patent
--- NOTE | 2022-10-28 01:01 | PC.NURSE ---
Pt medicated per jun. dorothy. Pt requested and given phone to call his .
[2022-10-28 01:20] VITALS: BP 125/80; PULSE 63; RESP 18; O2SAT 98
--- NOTE | 2022-10-28 02:27 | PC.NURSE ---
Pt refused lactic draw. aware. tm.
--- NOTE | 2022-10-28 02:35 | PC.NURSE ---
Pts called [facility] [phone].
[2022-10-28 02:49] LABS: ~Lactic Acid-LAB USE ONLY 0.8 mmol/L (0.5-2.0)
== END 2022-10-28 03:55 | disposition home or self-care (01) ==
PROVIDERS: Emergency Provider Student in an Organized Health Care Education/Training Program
DX: K52.9 Noninfective gastroenteritis and colitis, unspecified (principal); E86.0 Dehydration; R11.2 Nausea with vomiting, unspecified; F12.90 Cannabis use, unspecified, uncomplicated; Z20.822 Contact with and (suspected) exposure to COVID-19; R10.11 Right upper quadrant pain; F11.20 Opioid dependence, uncomplicated; F25.9 Schizoaffective disorder, unspecified; Z79.899 Other long term (current) drug therapy
CPT/HCPCS: 36415; 71046; 76705; 80048; 80076; 80307; 82947; 83605; 83690; 83735; 85025; 87040; 87635; 93005; 96361; 96365; 96375; 99284; 99285; J2405; J2543